=== PATIENT | female | born 1950 | race Caucasian/White ===

== ENCOUNTER 2017-12-28 08:35 | Day surgery (SDC) ==
[2017-12-28] MEDS: TETRACAINE 0.5% UNIT-DOSE OP PRN ×2 (10:06→10:27)
[2017-12-28] MEDS: BETADINE OPTH PREP OP PRN ×2 (10:07→10:27)
[2017-12-28] MEDS: CYCLOGYL 2% OPTH OP PRN ×3 (10:08→10:18)
[2017-12-28] MEDS ORDERED: LIDOCAINE 1% 20 ML MDV ID STA (10:13)
[2017-12-28] MEDS ORDERED: BRIMONIDINE TARTRATE 0.2% OPTH SOL OP PRN (10:13)
[2017-12-28] MEDS ORDERED: DEX-MOXI-KETOR OPTH INJ 1/0.5/0.4 MG/ML IO ONE (10:13)
[2017-12-28] MEDS ORDERED: NIRAVAM ODT (SURGERY) PO PRN (10:13)
[2017-12-28] MEDS ORDERED: ZOFRAN 4 MG/2 ML IVP ONE (10:13)
[2017-12-28] MEDS ORDERED: AK-DILATE 10% OPTH SOL OP PRN (10:13)
[2017-12-28] MEDS ORDERED: BSS WITH EPINEPHRINE OP ONE (10:14)
[2017-12-28] MEDS ORDERED: VERSED ONE (10:30)
[2017-12-28] MEDS ORDERED: SUBLIMAZE ONE (10:30)
[2017-12-28] MEDS ORDERED: DIPRIVAN 20 ML VIAL IVP ONE (10:30)
[2017-12-28] MEDS ORDERED: LIDOCAINE 1%/PHENYLEPHRINE 1.5% BSS (SURGERY) INTRAOCULA ONE (10:45)
[2017-12-28 13:17] VITALS: BP 148/78; TEMP 97.6
== END 2017-12-28 11:45 | disposition home or self-care (01) ==
LOC: SURG 08:35
PROVIDERS: ATTEND Ophthalmology
DX: H25.811 Combined forms of age-related cataract, right eye (principal)

== ENCOUNTER 2018-01-25 07:24 | Day surgery (SDC) ==
[2018-01-25] MEDS: TETRACAINE 0.5% UNIT-DOSE OP PRN ×2 (07:36→08:49)
[2018-01-25] MEDS: BETADINE OPTH PREP OP PRN ×2 (07:37→08:49)
[2018-01-25] MEDS: CYCLOGYL 2% OPTH OP PRN ×3 (07:38→07:48)
[2018-01-25] MEDS ORDERED: LIDOCAINE 1%/PHENYLEPHRINE 1.5% BSS (SURGERY) INTRAOCULA ONE (07:55)
[2018-01-25] MEDS ORDERED: BRIMONIDINE TARTRATE 0.2% OPTH SOL OP PRN (07:55)
[2018-01-25] MEDS ORDERED: AK-DILATE 10% OPTH SOL OP PRN (07:55)
[2018-01-25] MEDS ORDERED: ZOFRAN 4 MG/2 ML IVP ONE (07:55)
[2018-01-25] MEDS ORDERED: DEX-MOXI-KETOR OPTH INJ 1/0.5/0.4 MG/ML IO ONE (07:55)
[2018-01-25] MEDS ORDERED: NIRAVAM ODT (SURGERY) PO PRN (07:55)
[2018-01-25] MEDS ORDERED: SUBLIMAZE ONE (09:00)
[2018-01-25] MEDS ORDERED: DIPRIVAN 20 ML VIAL IVP ONE (09:00)
[2018-01-25] MEDS ORDERED: BSS WITH EPINEPHRINE OP SCH (09:00)
[2018-01-25] MEDS ORDERED: VERSED ONE (09:00)
[2018-01-25] MEDS ORDERED: LIDOCAINE 1% 20 ML MDV ID STA (09:25)
[2018-01-25 09:56] VITALS: BP 11/74
== END 2018-01-25 09:42 | disposition home or self-care (01) ==
LOC: SURG 07:24
PROVIDERS: ATTEND Ophthalmology
DX: H25.812 Combined forms of age-related cataract, left eye (principal); E11.9 Type 2 diabetes mellitus without complications